=== PATIENT | female | born 1990 | race Caucasian/White ===

== ENCOUNTER → 2017-04-21 | Outpatient (CLI) | payer OTHER ==
--- NOTE | 2017-04-21 11:09 | KCIC ---
Pelvic ultrasound Clinical Indication:Pelvic pain for 6 months, greater on the right.. . TRANSABDOMINAL SCAN Endometrial stripe measures 2 mm. Suboptimal visualization of the adnexa. TRANSVAGINAL SCAN Uterus: 8.0 cm longitudinal by 4.1 cm AP by 4.7 cm wide. No evidence of myometrial mass. Endometrium: 3 mm thick Right ovary: Suboptimally visualized, but measures 2.9 cm diameter with positive arterial blood flow. Left ovary: 2.3 cm maximum diameter with positive arterial blood flow. Free fluid: None visualized IMPRESSION: No significant sonographic abnormality. Electronically signed by: Tyrese Tracey MD (04/21/2017 11:06 AM) [facility]
== END | disposition home or self-care (01) ==
LOC: KCIC US 07:46
PROVIDERS: ATTEND Obstetrics & Gynecology
DX: R10.2 Pelvic and perineal pain (principal)
CPT/HCPCS: 76856